=== PATIENT | female | born 1945 | race Caucasian/White ===

== ENCOUNTER 2018-01-25 01:02 | Observation (INO) ==
[2018-01-25] MEDS ORDERED: Ondansetron ODT 4 MG TAB.RAPDIS SL PRN (05:08)
[2018-01-25] MEDS ORDERED: Naloxone 0.4 MG/ML INJ IVP PRN (05:08)
[2018-01-25] MEDS ORDERED: OXYCODONE Oral CONC 10 MG/0.5 ML ORAL.SYG SL PRN (05:08)
[2018-01-25] MEDS ORDERED: 0.9 % Sodium Chloride 1,000 ML IVC SCH (05:15)
--- NOTE | 2018-01-25 05:33 | Internal Med History&Physical ---
Date of Encounter: 01/25/18 Time of Encounter: 05:18 Internal Medicine - H&P: HPI Chief complaint: Abdominal Pain Admitted From: Hospital to Hospital Transfer Plans for Post Hospital Care: Home History of present illness: Ms. Abdul is a 72 year old female with a past medical history of hypertension. She presented to the [place] ED after several episodes over 2 days of severe right upper quadrant pain with associated nausea and vomiting and radiation to the right shoulder. One of the episodes was postprandial and the others did not seem to be. She has never had symptoms like this before and does not have a significant history of gastrointestinal illness. She also denies any abdominal surgical history. Her social history consists of approximately 30 years of tobacco use, quit 20 years ago, no alcohol or drug use. Labs and imaging at [facility] revealed white blood cell count 12.5, amylase 628 , lipase greater than 1800, CT abdomen findings of gallbladder wall thickening. During her stay at [facility] she was actually completely asymptomatic. However she was transferred to the [facility] in case surgical intervention was warranted for possible cholecystitis and pancreatitis. Past Med Surg Social Fam HX - Past Medical History Medical history: hypertension Psychiatric history: no psych history - Social History Smoking Status: Never smoker Smokeless Tobacco Status: No Alcohol use: none Drug use: none - Family History Father Adopted: [place]: SOPHY Family Member Ethnicity: Non- Living Status: Age at : 69 Cause of : LUNG CANCER Hx Family Respiratory Disorders: Yes (ASHTHMA, COPD) Hx Family Cancer: Yes (LUNG) Hx Family GI Disorders: No Hx Family Genitourinary Disorders: No Hx Family Endocrine Disorder: No Hx Family Musculoskeletal Disorders: No Hx Family Neuromuscular Disorders: No Hx Family Neurologic Disorders: No Hx Family HEENT Disorders: No Hx Family Autoimmune Disorders: No Hx Family Reproductive Disorders: No Hx Family Psychosocial Disorders: No Hx Family Medical Disorders: No Mother Cause of : esophageal cancer Internal Medicine - H&P: Meds Losartan [Cozaar] 25 mg PO DAILY 01/25/18 [History] 3 Allergy/AdvReac Type Severity Reaction Status Date / Time No Known Allergies Allergy Verified 01/25/18 00:53 All Systems PM: A 10-system review of systems was performed and is negative for pertinent findings except as documented above in the HPI. - Constitutional Constitutional: no chills, no fever(s), no malaise - Cardiovascular Cardiovascular ROS IM: no chest pain, no diaphoresis, no dyspnea, no dyspnea on exertion, no lightheadedness, no syncope - Respiratory Respiratory: no cough - Gastrointestinal Gastrointestinal: abdominal pain, vomiting, no change in bowel habits, no change in stool character, no coffee ground emesis, no diarrhea - Genitourinary Genitourinary: no urinary frequency, no urinary hesitancy, no urinary incontinence, no urinary urgency - Musculoskeletal Musculoskeletal ROS IM: no arthralgias - Integumentary Integumentary IM: no erythema - Neurological Neurological ROS: no abnormal speech, no focal weakness - Psychiatric Psychiatric: no confusion - Endocrine Endocrine IM: no flushing - Constitutional Vitals: Temp Pulse Resp BP Pulse Ox 97.6 F 62 14 172/81 98 01/25/18 03:39 01/25/18 03:39 01/25/18 03:39 01/25/18 03:39 01/25/18 03:39 Exam: Patient in no acute distress, alert and oriented 3 Cranial nerves II through XII intact Heart in regular rate and irregularly irregular rhythm, no murmur or gallop Lungs clear to auscultation bilaterally without wheeze or rales or rhonchi Abdomen soft and mostly nontender with normal bowel sounds present, tender to deep palpation in the right upper quadrant, no distention or guarding Bilateral lower extremities nonedematous Skin warm and dry - Assessment and plan (1) Pancreatitis Current Visit: Yes Status: Acute Assessment and plan: Patient presented with right upper quadrant pain CMP revealed amylase 628 and lipase greater than 1800 Patient is asymptomatic and hemodynamically stable No history of previous occurrences Plan NPO diet 2L normal saline bolus, 2L normal saline MIVF 100mls/hr 5mg SL Oxycodone q4hr PRN pain control 4mg SL Ondansetron q8hr PRN nausea Consider GI or Surgery consult Qualifiers: Chronicity: acute Pancreatitis type: unspecified pancreatitis type Acute pancreatitis complication: unspecified Qualified Code(s): K85.90 - Acute pancreatitis without necrosis or infection, unspecified (2) Cholecystitis Current Visit: Yes Status: Acute Assessment and plan: Patient presented with right upper quadrant pain White blood cell count 12.5, afebrile Other vital signs within normal limits, negative SIRS criteria CT abdomen revealed gallbladder wall thickening Plan Ceftriaxone 2g daily NPO diet MIVF, pain and nausea control Gallbladder US Surgery consult based on imaging (3) Hypertension Current Visit: No Status: Chronic Assessment and plan: Patient with chronic hypertension managed with home medications We will hold home Losartan and monitor Qualifiers: Hypertension type: essential hypertension Qualified Code(s): I10 - Essential (primary) hypertension (4) DVT prophylaxis Current Visit: Yes Status: Acute Assessment and plan: 5000 units subcutaneous heparin every 8 hours - Time Spent With Patient Total time spent is greater than 50% in coordination of care (as documented) at patient's floor/unit and/or counseling patient:
[2018-01-25] MEDS: *HR* Heparin 5,000 UNIT/ML VIAL SQ SCH ×3 (05:51→21:09)
[2018-01-25 05:52] LABS: Basophils % 0.6 %; Eosinophils # 0.1 K/mcL (0.0-0.6); Eosinophils % 1.1 %; Hematocrit 39.5 % (35.3-44.9); Hemoglobin 13.3 g/dL (11.5-15.4); Immature Granulocytes % 0.2 % (0-4); Lymphocytes # 1.6 K/mcL (0.6-4.6); Lymphocytes % 25.6 %; Mean Corpuscular HGB Conc 33.7 g/dL (31.6-35.5); Mean Corpuscular Hemoglobin 28.7 pg (28.0-33.3); Mean Corpuscular Volume 85.1 fL (83.0-100.0); Mean Platelet Volume 10.8 fL (9.4-12.4); Monocytes # 0.4 K/mcL (0.0-1.3); Neutrophils # 4.2 K/mcL (1.6-8.9); Platelet Count 226 K/mcL (140-400); Red Blood Count 4.64 M/mcL (3.82-4.97); Red Cell Distribution Width 12.9 % (11.5-14.5); Segmented Neutrophils % 66.5 %
[2018-01-25 07:06] LABS: BUN/Creatinine Ratio 24 (6-26); Blood Urea Nitrogen 13 mg/dL (8-23); Carbon Dioxide 24 mEq/L (23-29); Chloride 110 mEq/L (98-107); Glucose 107 mg/dL (70-105); Potassium 3.6 mEq/L (3.5-5.1); Sodium 141 mEq/L (136-145); eGFR For Non-African Americans > 60 (> 60)
[2018-01-25 07:07] LABS: Alanine Aminotransferase 41 Units/L (7-52); Albumin 4.2 g/dL (3.5-5.7); Albumin/Globulin Ratio 1.6 (1.1-2.2); Alkaline Phosphatase 72 Units/L (34-104); Aspartate Amino Transferase 49 Units/L (13-39); Bilirubin,Total 0.6 mg/dL (0.3-1.0); Chol/HDL Ratio 3.7 (0-4.9); Cholesterol 226 mg/dL (< 200); Globulin 2.6 g/dL (2.4-3.5); HDL Cholesterol 61 mg/dL (40-59); LDL Cholesterol,Calculated 140 mg/dL (0-99); Osmolality,Calculated 293 (280-300); Total Protein 6.8 g/dL (6.4-8.9); Triglycerides 123 mg/dL (< 150)
[2018-01-25 07:23] LABS: Amylase 229 Units/L (29-103); Lipase 619 Units/L (11-82)
--- NOTE | 2018-01-25 10:42 | Event Note ---
Date of Encounter: 01/25/18 Time of Encounter: 10:39 Patient seen and examined at bedside. Patient no acute overnight events since admission. History and physical assessment and plan reviewed and agreed. Patient presented with three-day history of epigastric and right upper quadrant pain associated with nausea and vomiting; found to have elevated lipase and imaging findings consistent with early cholecystitis with no cholelithiasis. The patient was started on IV fluids and made nothing by mouth and has improvement of her symptoms and laboratory studies. Currently the patient is resting comfortably in no distress and is only complaining of mild right upper quadrant pain We will consult GI for evaluation in light of pancreatitis and cholecystitis to determine if MRCP would be of any benefit since there was no cholelithiasis seen on imaging Will obtain HIDA scan for now and keep input patient nothing by mouth with IV fluids
--- NOTE | 2018-01-25 11:41 | Gastroenterology Consult Note ---
<Diamond Barajas - Last Filed: 01/25/18 13:00> Date of Encounter: 01/25/18 Time of Encounter: 11:36 - Assessment and plan (1) Pancreatitis Current Visit: Yes Status: Acute Assessment and plan: 72yr old female with acute pancreatitis likely secondary to gallstones as her lipase was very elevated at >1800 and has now decreased significantly. Per history there is likely no other cause of acute pancreatitis besides gallstones. Abdominal pain has completely resolved. -Gallbladder ultrasound demonstrated wall thickening 8mm. No biliary dilation or stones. Negative Ambriz. -Lipase 619 (>1800 at [place]) -amylase to 29 -calcium and triglycerides unremarkable. No alcohol use. Only medication is losartan. -abdominal exam was soft, nontender, no guarding Plan: -HIDA scan is ordered -patient may have a clear liquid diet after HIDA scan -recommend general surgery consultation for possible cholecystectomy -antibiotics are not indicated at this time Qualifiers: Chronicity: acute Pancreatitis type: unspecified pancreatitis type Acute pancreatitis complication: unspecified Qualified Code(s): K85.90 - Acute pancreatitis without necrosis or infection, unspecified (2) Thickening of wall of gallbladder with pericholecystic fluid Current Visit: No Status: Acute Assessment and plan: Gallbladder ultrasound demonstrated wall thickening 8mm. No biliary dilation or stones. Negative Ambriz. -Plan as above - Time Spent With Patient Total time spent is greater than 50% in coordination of care (as documented) at patient's floor/unit and/or counseling patient: GI History of Present Illness - Data of Consult Patient: new to practice Consult date: 01/25/18 Requesting Physician: Patrice Mccauley MD - Consult Narrative Reason for consult: Pancreatitis/gallbladder inflammation History of present illness: Ms. Abdul is a 72 year old female with past medical history of hypertension who presented as a transfer from [place] ED and gastroenterology was consulted due to due to acute pancreatitis and gallbladder wall inflammation. Labs at [place]: WBC 12.5, amylase 628, lipase greater than 1800, CT abdomen findings of gallbladder wall thickening. The patient reported that 4 days ago she had an episode of sharp and severe right upper quadrant pain that lasted an hour and a half. It was a sudden onset and then resolved quickly. She had nausea and vomiting. She did not go to the ED at that time. Yesterday she noted that the pain started suddenly again the right upper quadrant sharp. She had nausea and reflux. She has never had anything like this before and does not have biliary colic or right upper quadrant pain after eating meals. She then went to the ED. She denied melena, hematachezia, fever, chills, hematemesis. She still has her gallbladder. She is a former smoker. Denied alcohol or drug use. Past Med Surg Social Fam HX - Past Medical History Attestation: Yes The following information was validated with the patient. Source: patient Medical history: hypertension Psychiatric history: no psych history - Past Surgical History Surgical History: no surgical history - Social History Smoking Status: Former smoker Smokeless Tobacco Status: No Alcohol use: none Drug use: none - Family History Father Adopted: [place]: SOPHY Family Member Ethnicity: Non- Living Status: Age at : 69 Cause of : LUNG CANCER Hx Family Respiratory Disorders: Yes (ASHTHMA, COPD) Hx Family Cancer: Yes (LUNG) Hx Family GI Disorders: No Hx Family Genitourinary Disorders: No Hx Family Endocrine Disorder: No Hx Family Musculoskeletal Disorders: No Hx Family Neuromuscular Disorders: No Hx Family Neurologic Disorders: No Hx Family HEENT Disorders: No Hx Family Autoimmune Disorders: No Hx Family Reproductive Disorders: No Hx Family Psychosocial Disorders: No Hx Family Medical Disorders: No Mother Cause of : esophageal cancer - Gastrointestinal Gastrointestinal: Present: abdominal pain, heartburn, nausea, vomiting. Absent : constipation, diarrhea, hematemesis, hematochezia, melena - Constitutional Constitutional: no fatigue, no weight loss - EENT Nose, mouth and throat: Absent: dysphagia, sore throat - Cardiovascular Cardiovascular ROS: Absent: chest pain, palpitations - Respiratory Respiratory IM: Absent: cough, dyspnea - Genitourinary Genitourinary: Absent: change in color - Neurological ROS Neurological GI: Absent: confusion, dizziness - Hematologic/Lymphatic Hematologic/Lymphatic pediatric: Absent: easy bleeding - Musculoskeletal Musculoskeletal ROS GI: Absent: back pain, joint swelling - Integumentary Integumentary GI: Absent: jaundice, pruritis, rash - Psychiatric ROS Psychiatric GI: Absent: depression - Endocrine Endocrine IM: Absent: fatigue - Constitutional Vitals: Temp Pulse Resp BP Pulse Ox 97.9 F 60 16 178/79 98 01/25/18 06:56 01/25/18 06:56 01/25/18 06:56 01/25/18 06:56 01/25/18 06:56 Exam: Gen.: Vitals noted. No acute distress. AAOx3 HEENT: oropharynx clear, Normocephalic, atraumatic Cardiac: RRR, no murmur, +S1/S2 Pulmonary: CTA bilaterally, no wheezes, rales or rhonchi, equal chest expansion Abdomen: soft, nontender, Bowel sounds noted, no guarding MSK: ROM intact, no joint swelling noted Extremities: no BLE edema, nontender calf, no cyanosis or clubbing Neuro: A&Ox3, moves all extremities, no focal deficits Psych: Appropriate mood and behavior Results - Labs CBC & Chem 7: 01/25/18 05:37 01/25/18 05:37 Labs: Last Result Calcium 9.0 mg/dL (8.6-10.3) 01/25/18 05:37 Triglycerides 123 mg/dL (< 150) 01/25/18 05:37 Entire Visit Hgb 13.3 g/dL (11.5-15.4) 01/25/18 05:37 Hct 39.5 % (35.3-44.9) 01/25/18 05:37 Total Bilirubin 0.6 mg/dL (0.3-1.0) 01/25/18 05:37 AST 49 Units/L (13-39) H 01/25/18 05:37 ALT 41 Units/L (7-52) 01/25/18 05:37 Amylase 229 Units/L (29-103) H 01/25/18 05:37 Lipase 619 Units/L (11-82) H 01/25/18 05:37 - Impressions Impressions Gallbladder Ultrasound 01/25/18 05:13 IMPRESSION: 1. Circumferential gallbladder wall thickening with negative sonographic Ambriz sign and no evidence of biliary dilation or gallstones. If clinically concerned about chronic cholecystitis, nuclear medicine hepatobiliary scintigraphy with gallbladder ejection fraction could be performed. 2. Mild fatty infiltration of the liver. Otherwise unremarkable right upper quadrant ultrasound. D/ / Camilo Olson MD / Camilo Olson MD Interpreting Provider: Camilo Olson MD Consult Discharge Plan - Plan Referrals: Christie Farias, [employer] [Primary Care Provider] - 01/31/18 12:30 pm <Luca Meyers - Last Filed: 01/25/18 15:40> Date of Encounter: 01/25/18 - Time Spent With Patient Total time spent is greater than 50% in coordination of care (as documented) at patient's floor/unit and/or counseling patient: GI History of Present Illness - Data of Consult Requesting Physician: Patrice Mccauley MD - Consult Narrative History of present illness: Ms. Abdul is a 72 year old female - Constitutional Vitals: Temp Pulse Resp BP Pulse Ox 97.9 F 60 16 178/79 98 01/25/18 06:56 01/25/18 06:56 01/25/18 06:56 01/25/18 06:56 01/25/18 06:56 Results - Labs CBC & Chem 7: 01/25/18 05:37 01/25/18 05:37 Labs: Last Result Calcium 9.0 mg/dL (8.6-10.3) 01/25/18 05:37 Triglycerides 123 mg/dL (< 150) 01/25/18 05:37 Entire Visit Hgb 13.3 g/dL (11.5-15.4) 01/25/18 05:37 Hct 39.5 % (35.3-44.9) 01/25/18 05:37 Total Bilirubin 0.6 mg/dL (0.3-1.0) 01/25/18 05:37 AST 49 Units/L (13-39) H 01/25/18 05:37 ALT 41 Units/L (7-52) 01/25/18 05:37 Amylase 229 Units/L (29-103) H 01/25/18 05:37 Lipase 619 Units/L (11-82) H 01/25/18 05:37 - Impressions Impressions Gallbladder Ultrasound 01/25/18 05:13 IMPRESSION: 1. Circumferential gallbladder wall thickening with negative sonographic Ambriz sign and no evidence of biliary dilation or gallstones. If clinically concerned about chronic cholecystitis, nuclear medicine hepatobiliary scintigraphy with gallbladder ejection fraction could be performed. 2. Mild fatty infiltration of the liver. Otherwise unremarkable right upper quadrant ultrasound. D/ / Camilo Olson MD / Camilo Olson MD Interpreting Provider: Camilo Olson MD - Attending Attestation I have personally performed a face to face evaluation on this patient. I have reviewed and agree with the care plan. History and Exam by me shows: Pt seen. Agree with Dr Downey assessment/plan. O/E Abd soft. A: Pt with poss GS pancreatitis Rec: Clear liquid, HIDA , surgical evaluation for poss GB surgery
[2018-01-25] MEDS: Ringers Solution, Lactated 1,000 ML IVC SCH (16:49)
--- NOTE | 2018-01-25 18:01 | General Surgery Consult Note ---
<Venita Mckeon - Last Filed: 01/25/18 17:49> Date of Encounter: 01/25/18 Time of Encounter: 17:49 Assessment and Plan (1) Pancreatitis Status: Acute Likely idiopathic pancreatitis with clinical picture to correlate to lipase 618 from over 1800 and Amylase 229 - but no imaging confirming gallstone. Both CT and US showed thickening of 8 mm with no evidence of cholelithasis. HIDA scan shows no cholecystitis with normal gastric emptying. - monitor lipase level - continue clears - agree with IVF as needed - no surgical intervention planned at this time Surgery will continue to follow Qualifiers: Chronicity: acute Pancreatitis type: unspecified pancreatitis type Acute pancreatitis complication: unspecified Qualified Code(s): K85.90 - Acute pancreatitis without necrosis or infection, unspecified (2) Thickening of wall of gallbladder with pericholecystic fluid Status: Acute see above History of Present Illness Consult date: 01/25/18 Reason for consult: abdominal pain Requesting physician: Gerald Del Castillo History of present illness: 72 y/o f hx HTN presented to [place] ED for two episodes of abdominal pain. She describes severe cramping epigastric pain that awoke her from sleep and caused her to vomit once; it last 1-2 hours and resolved on its own Second occurrence was after eating a taco and she felt nauseous but did not vomit. These symptoms resolved once she presented to ED and has not reoccurred. At [place] ED her lipase was over [address] finds of galbladder thickening. She was transferred to [place] for concern for pancreatitis and cholecyctisis. She has remained afebrile and is tolerating clears well - denies diarrhea, confusion, feverish or chills. She has occasional leg cramps at night that she says feel similar to this abdominal pain. Her only medical diagnosis is HTN and her only medications are losartan and vitamin D. She has no history of EtOH use. She is former smoker who quit decades ago. She denies illicit substances. Surgical history included removal of benign throat tumor - no adverse reaction to anesthesia. FMHx of mother with cholelithasis. She was evaluated by GI who could not find inciting etiology for pancreatisis with normal calcium and triglycerides- thus suspected cholelithasis. Past Med Surg Social Fam HX - Past Medical History Medical history: hypertension Psychiatric history: no psych history - Past Surgical History Surgical History: no surgical history - Social History Smoking Status: Former smoker Smokeless Tobacco Status: No Alcohol use: none Drug use: none - Family History Father Adopted: [place]: SOPHY Family Member Ethnicity: Non- Living Status: Age at : 69 Cause of : LUNG CANCER Hx Family Respiratory Disorders: Yes (ASHTHMA, COPD) Hx Family Cancer: Yes (LUNG) Hx Family GI Disorders: No Hx Family Genitourinary Disorders: No Hx Family Endocrine Disorder: No Hx Family Musculoskeletal Disorders: No Hx Family Neuromuscular Disorders: No Hx Family Neurologic Disorders: No Hx Family HEENT Disorders: No Hx Family Autoimmune Disorders: No Hx Family Reproductive Disorders: No Hx Family Psychosocial Disorders: No Hx Family Medical Disorders: No Mother Cause of : esophageal cancer Medications and Allergies Losartan [Cozaar] 25 mg PO DAILY 01/25/18 [History] 3 Allergy/AdvReac Type Severity Reaction Status Date / Time No Known Allergies Allergy Verified 01/25/18 00:53 Review of Systems All systems PM: The remainder of the systems were reviewed and are negative - Constitutional no fever(s), no frequent falls, no headache(s), no malaise - Cardiovascular no chest pain, no irregular heart rhythm, no palpitations - Respiratory no cough, no wheezing, no chest congestion - Gastrointestinal abdominal pain, cramping, nausea, vomiting, no constipation, no diarrhea - Genitourinary Genitourinary: no dysuria, no hematuria, no urinary frequency - Musculoskeletal muscle cramps, no muscle weakness - Neurological no confusion, no headache(s), no syncope General Surgery Exam Initial Vital Signs Temp Pulse Resp BP Pulse Ox 97.6 F 62 14 172/81 98 01/25/18 03:39 01/25/18 03:39 01/25/18 03:39 01/25/18 03:39 01/25/18 03:39 - General physical appearance well developed, well nourished, no distress - Eyes normal ocular movement - ENT normal pinna, normal nares, no hearing loss, no congestion, dry mucosa - Respiratory normal expansion, normal respiratory effort, clear to auscultation - Cardiovascular Cardiovascular exam: Present: RRR, no murmurs/rubs/gallops - Abdomen Abdomen general surgery: Present: bowel sounds present (decreased), soft. Absent: distended, guarding Abdominal Tenderness: Present: RUQ (very mild, no Ambriz's sign) Hernia: Present: none - Integumentary Integumentary general surgery: Present: warm and dry, no abnormal pigmentation. Absent: diaphoresis - Neurologic Present: CN 2-12 grossly intact, normal coordination, normal sensation - Musculoskeletal Present: normal gait, normal posture - Psychiatric Psychiatric general surgery: Present: A&Ox3, speech is normal, memory intact Exam Initial Vital Signs Temp Pulse Resp BP Pulse Ox 97.6 F 62 14 172/81 98 01/25/18 03:39 01/25/18 03:39 01/25/18 03:39 01/25/18 03:39 01/25/18 03:39 Results - Labs 01/25/18 05:37 01/25/18 05:37 Abnormal lab results Chloride 110 mEq/L (98-107) H 01/25/18 05:37 Creatinine 0.54 mg/dL (0.60-1.20) L 01/25/18 05:37 Glucose 107 mg/dL (70-105) H 01/25/18 05:37 AST 49 Units/L (13-39) H 01/25/18 05:37 Cholesterol 226 mg/dL (< 200) H 01/25/18 05:37 LDL Cholesterol, Calc 140 mg/dL (0-99) H 01/25/18 05:37 HDL Cholesterol 61 mg/dL (40-59) H 01/25/18 05:37 Amylase 229 Units/L (29-103) H 01/25/18 05:37 Lipase 619 Units/L (11-82) H 01/25/18 05:37 Diabetes panel 01/25/18 Range/Units 05:37 Sodium 141 (136-145) mEq/L Potassium 3.6 (3.5-5.1) mEq/L Chloride 110 H (98-107) mEq/L Carbon Dioxide 24 (23-29) mEq/L BUN 13 (8-23) mg/dL Creatinine 0.54 L (0.60-1.20) mg/dL Glucose 107 H (70-105) mg/dL Calcium 9.0 (8.6-10.3) mg/dL AST 49 H (13-39) Units/L ALT 41 (7-52) Units/L Alkaline Phosphatase 72 (34-104) Units/L Albumin 4.2 (3.5-5.7) g/dL Triglycerides 123 (< 150) mg/dL HDL Cholesterol 61 H (40-59) mg/dL Calcium panel 01/25/18 Range/Units 05:37 Calcium 9.0 (8.6-10.3) mg/dL Albumin 4.2 (3.5-5.7) g/dL Pituitary panel 01/25/18 Range/Units 05:37 Sodium 141 (136-145) mEq/L Potassium 3.6 (3.5-5.1) mEq/L Chloride 110 H (98-107) mEq/L Carbon Dioxide 24 (23-29) mEq/L BUN 13 (8-23) mg/dL Creatinine 0.54 L (0.60-1.20) mg/dL Glucose 107 H (70-105) mg/dL Calcium 9.0 (8.6-10.3) mg/dL Adrenal panel 01/25/18 Range/Units 05:37 Sodium 141 (136-145) mEq/L Potassium 3.6 (3.5-5.1) mEq/L Chloride 110 H (98-107) mEq/L Carbon Dioxide 24 (23-29) mEq/L BUN 13 (8-23) mg/dL Creatinine 0.54 L (0.60-1.20) mg/dL Glucose 107 H (70-105) mg/dL Calcium 9.0 (8.6-10.3) mg/dL Total Bilirubin 0.6 (0.3-1.0) mg/dL AST 49 H (13-39) Units/L ALT 41 (7-52) Units/L Alkaline Phosphatase 72 (34-104) Units/L Albumin 4.2 (3.5-5.7) g/dL All other labs normal. Consult Discharge Plan - Plan Instructions: Pancreatitis (DC), Pancreatitis (GEN) Referrals: Christie Farias, KIRSTEN [Primary Care Provider] - 01/31/18 12:30 pm <Ryan Salter - Last Filed: 01/27/18 14:55> Date of Encounter: 01/25/18 Review of Systems All systems PM: The remainder of the systems were reviewed and are negative General Surgery Exam Initial Vital Signs Temp Pulse Resp BP Pulse Ox 97.6 F 62 14 172/81 98 01/25/18 03:39 01/25/18 03:39 01/25/18 03:39 01/25/18 03:39 01/25/18 03:39 Exam Initial Vital Signs Temp Pulse Resp BP Pulse Ox 97.6 F 62 14 172/81 98 01/25/18 03:39 01/25/18 03:39 01/25/18 03:39 01/25/18 03:39 01/25/18 03:39 Results - Labs 01/26/18 03:36 01/26/18 03:36 Abnormal lab results Chloride 111 mEq/L (98-107) H 01/26/18 03:36 Creatinine 0.54 mg/dL (0.60-1.20) L 01/26/18 03:36 Serum Total Protein 5.9 g/dL (6.4-8.9) L 01/26/18 03:36 Globulin 2.2 g/dL (2.4-3.5) L 01/26/18 03:36 Cholesterol 226 mg/dL (< 200) H 01/25/18 05:37 LDL Cholesterol, Calc 140 mg/dL (0-99) H 01/25/18 05:37 HDL Cholesterol 61 mg/dL (40-59) H 01/25/18 05:37 Amylase 229 Units/L (29-103) H 01/25/18 05:37 All other labs normal. - Attending Attestation I examined this patient and my medical decision-making was reviewed with the Resident Physician. I agree with the documented findings, disposition and treatment plan as described except to the extent set forth below. Review the above assessment and evaluation. Patient had right upper quadrant abdominal pain but denies any nausea or vomiting. I examination tenderness is minimal. Lipase value was greater than 1800 on presentation but down to approximately 600. Ultrasound and CT scan shows no evidence of gallstones. HIDA scan shows flow into the small bowel. There is no evidence of gallstones present therefore it appears that she has idiopathic pancreatitis. She may benefit from further evaluation by GI to determine whether or not she has miniature crystal formation within the bile which would be reason for laparoscopic cholecystectomy. At this time I do not think she requires any type of surgical intervention. Await recovery from her pancreatic tenderness. Thank you very much.
[2018-01-26] MEDS ORDERED: cefTRIAXone 2,000 MG in Water for inj. (sterile) 20 ML 20 ML IVPB SCH (01:00)
[2018-01-26] MEDS: Ringers Solution, Lactated 1,000 ML IVC SCH (04:03)
[2018-01-26 05:20] LABS: Basophils # 0.1 K/mcL (0.0-0.2); Basophils % 0.8 %; Eosinophils # 0.1 K/mcL (0.0-0.6); Eosinophils % 1.8 %; Hematocrit 36.8 % (35.3-44.9); Hemoglobin 12.5 g/dL (11.5-15.4); Immature Granulocytes % 0.3 % (0-4); Lymphocytes # 1.5 K/mcL (0.6-4.6); Lymphocytes % 24.1 %; Mean Corpuscular Hemoglobin 28.7 pg (28.0-33.3); Mean Corpuscular Volume 84.4 fL (83.0-100.0); Mean Platelet Volume 11.6 fL (9.4-12.4); Monocytes # 0.3 K/mcL (0.0-1.3); Monocytes % 5.1 %; Neutrophils # 4.1 K/mcL (1.6-8.9); Platelet Count 226 K/mcL (140-400); Red Blood Count 4.36 M/mcL (3.82-4.97); Segmented Neutrophils % 67.9 %
[2018-01-26 05:33] LABS: Alanine Aminotransferase 26 Units/L (7-52); Albumin 3.7 g/dL (3.5-5.7); Albumin/Globulin Ratio 1.7 (1.1-2.2); Alkaline Phosphatase 59 Units/L (34-104); Aspartate Amino Transferase 22 Units/L (13-39); BUN/Creatinine Ratio 19 (6-26); Bilirubin,Direct 0.1 mg/dL (0.0-0.2); Bilirubin,Indirect 0.9 mg/dL (0.0-1.2); Blood Urea Nitrogen 10 mg/dL (8-23); Carbon Dioxide 24 mEq/L (23-29); Chloride 111 mEq/L (98-107); Globulin 2.2 g/dL (2.4-3.5); Glucose 102 mg/dL (70-105); Lipase 78 Units/L (11-82); Magnesium 2.2 mg/dL (1.6-2.6); Osmolality,Calculated 295 (280-300); Phosphorous 3.3 mg/dL (2.7-4.5); Potassium 3.5 mEq/L (3.5-5.1); Sodium 143 mEq/L (136-145); Total Protein 5.9 g/dL (6.4-8.9); eGFR For Non-African Americans > 60 (> 60)
[2018-01-26] MEDS: *HR* Heparin 5,000 UNIT/ML VIAL SQ SCH (05:46)
[2018-01-26 08:25] VITALS: BP 168/76
--- NOTE | 2018-01-26 09:34 | Discharge Summary ---
- NOTES TO OUTPATIENT PROVIDER Notes to Outpatient Provider: Ms. Abdul is a pleasant 72-year-old female presented with chief complaint of abdominal pain with right upper quadrant pain. The patient had initial imaging consistent with gallbladder wall thickening concerning for cholecystitis and elevated lipase. The patient was started on IV fluids and had subsequent HIDA scan which did not reveal cholecystitis. The patient's elevated liver enzymes and lipase improved dramatically and were normal prior to discharge. The patient likely had a gallstone that passed causing her symptoms. Imaging did not reveal any evidence of any subsequent stones. Patient was started on a diet and tolerated it well and had absolutely no symptoms prior to discharge. Disposition admission she developed these symptoms again she should return to the emergency department for further evaluation. She will follow-up with her primary care physician within one week. Patient stable condition and agreeable to discharge on 01/26/2018. All questions answered. Date of Encounter: 01/26/18 Time of Encounter: 09:31 - Discharge Diagnosis (1) Pancreatitis Priority: Primary Status: Inactive Assessment and Plan: -presumed gallstone pancreatitis -resolved Qualifiers: Chronicity: acute Pancreatitis type: unspecified pancreatitis type Acute pancreatitis complication: unspecified Qualified Code(s): K85.90 - Acute pancreatitis without necrosis or infection, unspecified (2) Hypertension Priority: Secondary Status: Chronic Qualifiers: Hypertension type: essential hypertension Qualified Code(s): I10 - Essential (primary) hypertension (3) Cholecystitis Priority: Secondary Status: Acute Assessment and Plan: Ruled out via HIDA scan (4) DVT prophylaxis Priority: Secondary Status: Acute Hospital course: Ms. Abdul is a pleasant 72-year-old female presented with chief complaint of abdominal pain with right upper quadrant pain. The patient had initial imaging consistent with gallbladder wall thickening concerning for cholecystitis and elevated lipase. The patient was started on IV fluids and had subsequent HIDA scan which did not reveal cholecystitis. The patient's elevated liver enzymes and lipase improved dramatically and were normal prior to discharge. The patient likely had a gallstone that passed causing her symptoms. Imaging did not reveal any evidence of any subsequent stones. Patient was started on a diet and tolerated it well and had absolutely no symptoms prior to discharge. Disposition admission she developed these symptoms again she should return to the emergency department for further evaluation. She will follow-up with her primary care physician within one week. Patient stable condition and agreeable to discharge on 01/26/2018. All questions answered. Discharge discussed with: patient, family, nurse - Time Spent with Patient Total time spent providing and/or coordinating discharge services: Less than 30 minutes - Discharge Medications Home Medications: Losartan [Cozaar] 25 mg PO DAILY 01/25/18 [History] Allergies/Adverse Reactions: 3 Allergy/AdvReac Type Severity Reaction Status Date / Time No Known Allergies Allergy Verified 01/25/18 00:53 Date of admission: 01/25/18 02:43 Primary care physician: Christie Farias CNP Consults: 01/25/18 10:35 Consult to Gastroenterology [CONS] Routine Consulting Provider: Gastroenterology Yessica Reason for Consult: pancreatitis/gallbladder inflamation Call Completed: Yes 01/25/18 13:38 Consult to Surgery [CONS] Routine Consulting Provider: Ryan Salter Reason for Consult: eval for cholecystectomy Call Completed: Yes - Constitutional Vitals: Temp Pulse Resp BP Pulse Ox 97.5 F L 79 16 168/76 96 01/26/18 08:25 01/26/18 08:25 01/26/18 08:25 01/26/18 08:25 01/26/18 08:25 Exam: Constitutional: No acute distress, Alert Psych: AAO x 3 HEENT: NCAT Neck: supple Cardio: regular rate and rhythm, +s1s2, no murmurs/rubs/gallops, no JVD Resp: clear to ascultation bilaterally Abd: soft, non tender/non distended, positive bowel sounds, no gaurding/reboud/ ridgitity Extremities: no clubbing/cyanosis/edema appreciated Neuro: no focal deficits appreciated - Patient Status Disposition: Home, Self-Care Condition: Good Functional capacity at discharge: independent ambulation Overall status at discharge: patient is back to baseline - Discharge Instructions Follow Up With: Christie Farias CNP [Primary Care Provider] - 01/31/18 12:30 pm - Diet and Activity Activity: as per physical therapy Diet: low fat, low cholesterol
== END 2018-01-26 12:30 | disposition home or self-care (01) ==
LOC: 3BNU
PROVIDERS: ADMIT Family Medicine; ATTEND Family Medicine

== ENCOUNTER 2018-04-20 17:37 | Observation (INO) ==
--- NOTE | 2018-04-20 18:13 | Emergency Department Note ---
Disposition General Adult HPI - General Chief complaint: ED Abdominal Pain Stated complaint: abd pain Time Seen by Provider: 04/20/18 18:13 Source: patient Limitations: no limitations - History of Present Illness Pain Scale: 0 - Related Data Home Medications Medication Instructions Recorded Confirmed Losartan [Cozaar] 25 mg PO DAILY 01/25/18 01/25/18 Allergies Allergy/AdvReac Type Severity Reaction Status Date / Time No Known Allergies Allergy Verified 01/25/18 00:53 Past Medical History - Past Medical History Medical history: Reports: hypertension Surgical history: Reports: no surgical history Psychiatric history: Reports: no psych history - Social History Smoking Status: Former smoker Smokeless Tobacco Status: No Alcohol use: Reports: none Drug use: Reports: none Physical Exam - General Limitations: no limitations General appearance: alert, in no apparent distress Course Vital Signs Temperature 97.6 F 04/20/18 17:40 Pulse Rate 79 04/20/18 17:40 Respiratory Rate 18 04/20/18 17:40 Blood Pressure 214/127 04/20/18 17:40 O2 Sat by Pulse Oximetry 98 04/20/18 17:40 Temperature 97.6 F 04/20/18 17:57 Pulse Rate 78 04/20/18 17:57 Respiratory Rate 18 04/20/18 17:57 Blood Pressure 161/102 04/20/18 17:57 O2 Sat by Pulse Oximetry 99 04/20/18 17:57 Oxygen Delivery Oxygen Delivery Room Air
--- NOTE | 2018-04-20 18:37 | Emergency Department Note ---
START Narrative - START START: Pt is a 73yo female here for increasing abdominal pain since this morning at 0830. She was recently here for "gallbladder issues" and pancreatitis. No gallstone was found on US likely secondary to already being passed. She had gen surg workup and was told to return if symptoms returned. She now has increasing symptoms. Epigastric, RUQ and back pain. It is burning/sharp. SHe has nausea, no vomiting. CBC, CMP, lipase, EKG ordered. Last admission she had negative HIDA, CT and ultrasound. <Rob Rogers - Last Filed: 04/20/18 18:32> - START START: I examined this patient and my medical decision-making was reviewed with the Resident Physician. I agree with the documented findings, disposition and treatment plan as described except to the extent set forth below. Patient seen today by Dr. Rogers and myself, agree with her evaluation management plan, supervised the care of the patient's stay, patient comes in today complaining that she is having some burning in her epigastric region. She says she is a gallbladder and pancreatitis. Issues in the past but they do not know the cause. We will start labs on her EKG and then sign her out to the evening ER physician Dr. Red for further management disposition. Patient's agreement this plan. <Trevon Gramajo - Last Filed: 04/20/18 19:05>
[2018-04-20 18:52] LABS: Basophils # 0.1 K/mcL (0.0-0.2); Basophils % 0.7 %; Eosinophils # 0.2 K/mcL (0.0-0.6); Eosinophils % 2.1 %; Hematocrit 40.9 % (35.3-44.9); Hemoglobin 13.9 g/dL (11.5-15.4); Immature Granulocytes % 0.4 % (0-4); Lymphocytes # 1.7 K/mcL (0.6-4.6); Mean Corpuscular Volume 85.4 fL (83.0-100.0); Mean Platelet Volume 10.8 fL (9.4-12.4); Monocytes # 0.4 K/mcL (0.0-1.3); Platelet Count 257 K/mcL (140-400); Red Blood Count 4.79 M/mcL (3.82-4.97); Red Cell Distribution Width 12.7 % (11.5-14.5); Segmented Neutrophils % 67.8 %
[2018-04-20 19:11] LABS: Alanine Aminotransferase 17 Units/L (7-52); Albumin 4.5 g/dL (3.5-5.7); Albumin/Globulin Ratio 1.8 (1.1-2.2); Alkaline Phosphatase 52 Units/L (34-104); Aspartate Amino Transferase 19 Units/L (13-39); BUN/Creatinine Ratio 19 (6-26); Bilirubin,Total 0.8 mg/dL (0.3-1.0); Blood Urea Nitrogen 12 mg/dL (8-23); Calcium 9.7 mg/dL (8.6-10.3); Carbon Dioxide 26 mEq/L (23-29); Chloride 107 mEq/L (98-107); Globulin 2.5 g/dL (2.4-3.5); Glucose 100 mg/dL (70-105); Lipase 120 Units/L (11-82); Osmolality,Calculated 294 (280-300); Potassium 4.1 mEq/L (3.5-5.1); Sodium 142 mEq/L (136-145); eGFR For Non-African Americans > 60 (> 60)
--- NOTE | 2018-04-20 19:24 | Emergency Department Note ---
Disposition Clinical Impression: Cholecystitis Disposition: Admitted As Inpatient Condition: Good Time of Disposition: 22:19 Abdominal Pain HPI - General Chief Complaint: ED Abdominal Pain Stated Complaint: abd pain Time Seen by Provider: 04/20/18 18:13 Source: patient Mode of arrival: ambulatory Limitations: no limitations Nursing Notes Reviewed: Yes Vital Signs Reviewed: Yes - History of Present Illness HPI Narrative: 73-year-old female with history of pancreatitis secondary to likely cholelithiasis according to previous surgeon, Dr. Salter, arrives to the emergency department with complaint of epigastric pain and right upper quadrant abdominal pain that started at roughly 08 100 this morning. The patient has associated nausea without vomiting. No fevers, chills, difficulty breathing, chest pain, melena, hematochezia. Patient is uncomfortable on evaluation is a positive Ambriz sign. She states that this is similar to previous episode with this burning sensation in the epigastric region as well as in her right upper quadrant. The patient was noted to have thickened gallbladder wall at that time as well as elevated pancreatic enzymes secondary to pancreatitis. Patient had a HIDA scan that demonstrated no gallstones but was instructed to come to the emergency department if she had another episode. This occurred roughly 2 months ago. Patient denies any other complaints at this time. Pain Scale: 0 - Related Data Home Medications Medication Instructions Recorded Confirmed RX: Losartan [Cozaar] 25 mg PO DAILY 01/25/18 04/20/18 Previous Rx's Medication Instructions Recorded RX: Pantoprazole Sodium 40 mg PO DAILY #30 tablet. 04/21/18 Allergies Allergy/AdvReac Type Severity Reaction Status Date / Time No Known Allergies Allergy Verified 01/25/18 00:53 All systems ED: reviewed and negative except as stated. Constitutional: Denies: fever, chills, weakness ENT ED: Denies: congestion, dysphagia Cardiovascular: Denies: chest pain Respiratory: Denies: dyspnea Gastrointestinal: Reports: abdominal pain, nausea. Denies: vomiting, diarrhea, constipation Genitourinary: Denies: urgency, dysuria Musculoskeletal: Denies: back pain, neck pain Integumentary: Denies: rash Neurological: Denies: headache Abdominal Pain PMH - Past Medical History Medical history: Reports: hypertension Female Surgical History: Reports: thyroidectomy Psychiatric history: Reports: no psych history - Social History Smoking status: Former smoker Alcohol use: Reports: none Drug use: Reports: none Physical Exam - General Limitations: no limitations General appearance: alert, in no apparent distress - Head Head exam: atraumatic, normocephalic, normal inspection - Eye Eye exam: Present: normal appearance, PERRL, EOMI - ENT ENT exam: normal exam, normal oropharynx, mucous membranes moist - Neck Neck exam: Present: normal inspection, full ROM, trachea midline - Chest Chest inspection: Present: normal inspection, symmetric chest wall rise - Respiratory Respiratory exam: Present: normal lung sounds bilaterally - Cardiovascular Cardiovascular exam: Present: regular rate, normal rhythm, normal heart sounds - Abdominal Exam Abdominal exam: Present: soft, tenderness, Ambriz's sign. Absent: distention, guarding, rebound, rigidity, psoas sign, obturator sign, Rovsing's sign, tendern ess at [place]'s [place], hernia, scar Abdominal tenderness: Present: RUQ, moderate - Extremities Exam Extremities exam: Present: normal inspection, full ROM. Absent: tenderness, pedal edema - Neurological Exam Neurological exam: Present: alert, oriented X3 Course Vital Signs Temperature 97.6 F 04/20/18 17:40 Pulse Rate 79 04/20/18 17:40 Respiratory Rate 18 04/20/18 17:40 Blood Pressure 214/127 04/20/18 17:40 O2 Sat by Pulse Oximetry 98 04/20/18 17:40 Temperature 97.6 F 04/20/18 17:57 Pulse Rate 78 04/20/18 17:57 Respiratory Rate 18 04/20/18 17:57 Blood Pressure 167/86 04/20/18 21:54 O2 Sat by Pulse Oximetry 99 04/20/18 17:57 Oxygen Delivery Oxygen Delivery Room Air Abdominal Pain - MDM Narrative Medical decision making narrative: Patient's workup in the emergency department demonstrate no leukocytosis, no elevation in transaminases and bilirubin. Patient does have a mildly elevated lipase. Right upper quadrant ultrasound revealed mild pericholecystic fluid with gallbladder wall thickening. Given the concern of the right upper quadrant pain, elevation in lipase combined with previous history of gallbladder wall thickening, I spoke with general surgery, Dr. White. After conversation, he recommended admission and likely cholecystectomy. He recommended admission to the hospitalist and he will consult. Given the concern for acute cholecystitis, we will start the patient on Zosyn. I spoke with the patient and she agrees to plan of care. No further questions or concerns noted at this time. Accepted by Dr. Mccauley. - Medical Records Medical records reviewed: Yes I reviewed the patient's medical records. - Lab Data Lab results reviewed: Yes I reviewed the patient's lab results. Result diagrams: 04/21/18 07:47 04/21/18 07:47 Lab Results 04/20/18 04/20/18 Range/Units 18:10 18:10 WBC 7.3 (4.3-11.1) K/mcL RBC 4.79 (3.82-4.97) M/mcL Hgb 13.9 (11.5-15.4) g/dL Hct 40.9 (35.3-44.9) % MCV 85.4 (83.0-100.0) fL MCH 29.0 (28.0-33.3) pg MCHC 34.0 (31.6-35.5) g/dL RDW 12.7 (11.5-14.5) % Plt Count 257 (140-400) K/mcL MPV 10.8 (9.4-12.4) fL Immature Gran % 0.4 (0-4) % Seg Neutrophils % 67.8 % Lymphocytes % 23.0 % Monocytes % 6.0 % Eosinophils % 2.1 % Basophils % 0.7 % Neutrophils # 5.0 (1.6-8.9) K/mcL Lymphocytes # 1.7 (0.6-4.6) K/mcL Monocytes # 0.4 (0.0-1.3) K/mcL Eosinophils # 0.2 (0.0-0.6) K/mcL Basophils # 0.1 (0.0-0.2) K/mcL Sodium 142 (136-145) mEq/L Potassium 4.1 (3.5-5.1) mEq/L Chloride 107 (98-107) mEq/L Carbon Dioxide 26 (23-29) mEq/L BUN 12 (8-23) mg/dL Creatinine 0.62 (0.60-1.20) mg/dL Est GFR ( Amer) > 60 (> 60) Est GFR (Non-Af Amer) > 60 (> 60) BUN/Creatinine Ratio 19 (6-26) Glucose 100 (70-105) mg/dL Calculated Osmolality 294 (280-300) Calcium 9.7 (8.6-10.3) mg/dL Total Bilirubin 0.8 (0.3-1.0) mg/dL AST 19 (13-39) Units/L ALT 17 (7-52) Units/L Alkaline Phosphatase 52 (34-104) Units/L Serum Total Protein 7.0 (6.4-8.9) g/dL Albumin 4.5 (3.5-5.7) g/dL Globulin 2.5 (2.4-3.5) g/dL Albumin/Globulin Ratio 1.8 (1.1-2.2) Lipase 120 H (11-82) Units/L - Radiology Data Radiology results reviewed: Yes I reviewed the patient's radiology results. Gallbladder Ultrasound 04/20/18 19:21 IMPRESSION: Moderate diffuse gallbladder wall thickening with trace pericholecystic fluid. Comet-tail artifact suggests adenomyomatosis. No definite cholelithiasis. Patient was slightly tender with compression of the gallbladder and cholecystitis must be considered. Follow-up nuclear medicine hepatobiliary imaging study may be helpful if clinically indicated. D/ / Renny Chase MD / Renny Chase MD Interpreting Provider: Renny Chase MD Attestation Statement - Attestation Attestation: Resident Attestation: I examined this patient and my medical decision making was reviewed with the Resident Physician. I agree with the documented findings, disposition and treatment plan as described except to the extent set forth below. We independently had [id number] contact with the patient. Patient with previous history of pancreatitis and cholelithiasis that was admitted and evaluated by Dr. Salter on previous admission. No immediate need to take out gallbladder at that time. Patient has been having episodes of right upper quadrant and epigastric pain. Today the pain is more severe radiating to the right shoulder. Workup for possible acute cholecystitis. Pericholecystic fluid seen. The resident did discuss the case with the surgeon elevator constructor hydraulic. Patient admitted for further evaluation.
[2018-04-20] MEDS ORDERED: Hyoscyamine SL 0.125 MG TAB.SUBL SL STA (20:08)
[2018-04-20] MEDS ORDERED: Piperacillin/Tazobactam 3.375 GM in 0.9 % Sodium Chloride Mini Bag 100 ML IVPB ONE (21:58)
[2018-04-21] MEDS ORDERED: Naloxone 0.4 MG/ML INJ IVP PRN (05:59)
[2018-04-21] MEDS ORDERED: 0.9 % Sodium Chloride 1,000 ML IVC SCH (06:00)
--- NOTE | 2018-04-21 06:13 | Internal Med History&Physical ---
Date of Encounter: 04/21/18 Time of Encounter: 05:15 Internal Medicine - H&P: HPI Chief complaint: Abdominal Pain Admitted From: Home Plans for Post Hospital Care: Home History of present illness: Ms. Abdul is a 73 year old female with past medical history significant for hypertension and acid reflux who presents for complaints of 4/10 burning right upper quadrant abdominal pain starting prior to arrival and accompanied by nausea. Patient states pain is intermittent and denies any alleviating or exacerbating factors. Denies any home treatment. Denies chest pain, shortness of breath, headache, bowel or bladder changes. Last bowel movement yesterday. Patient was seen around 2 months ago for similar abdominal pain and was found to have thickened gallbladder with elevated pancreatic enzymes secondary to concepcion creatitis. Patient was seen by surgery at that time but they then did not feel gallbladder needed to be removed. Was told to return for any similar symptoms. Due to presentation similar to previous with gallbladder wall thickening, elevated lipase, and positive Ambriz sign, ER consulted surgery who suspected cholecystitis likely needing cholecystectomy. Upon my assessment patient reports the pain is completely resolved currently. She also reports already being seen by surgery prior to my assessment who reported they will likely not do surgery and have her follow up as outpatient. Will await official surgery recommendations for final disposition. Past Med Surg Social Fam HX - Past Medical History Medical history: hypertension Psychiatric history: no psych history - Past Surgical History Surgical History: no surgical history - Social History Smoking Status: Former smoker Smokeless Tobacco Status: No Alcohol use: none Drug use: none - Family History Father Adopted: No Family Member Ethnicity: Non- Living Status: Hx Family Respiratory Disorders: Yes (ASHTHMA, COPD) Hx Family Cancer: Yes (LUNG) Hx Family GI Disorders: No Hx Family Endocrine Disorder: No Hx Family Neuromuscular Disorders: No Hx Family Neurologic Disorders: No Hx Family HEENT Disorders: No Hx Family Autoimmune Disorders: No Internal Medicine - H&P: Meds Losartan [Cozaar] 25 mg PO DAILY 01/25/18 [History] Allergy/AdvReac Type Severity Reaction Status Date / Time No Known Allergies Allergy Verified 01/25/18 00:53 All Systems PM: A 10-system review of systems was performed and is negative for pertinent findings except as documented above in the HPI. - Constitutional Vitals: Temp Pulse Resp BP Pulse Ox 97.7 F 55 16 155/72 98 04/21/18 04:23 04/21/18 04:23 04/21/18 04:23 04/21/18 04:23 04/21/18 04:23 Exam: General: Alert and oriented. Skin:Normal color, no rash, no lesions. HEENT:Pupils equal, round and reactive. Cardiovascular:Normal S1 & S2, no rubs, murmurs or gallops. No JVD. Pulse regular. Lungs:Normal breath sounds, no wheezes or crackles. Abdomen:Soft, non-tender, no rigidity. Abdominal pain currently resolved. Extremities:No deformity, no edema or tenderness, no joint swelling or clubbing. Neurological:Normal cognition and motor skills. Pulses:Carotid and radial pulses normal +2. Rest of the physical exam is non contributory. Internal Med - H&P Results - Labs CBC & Chem 7: 04/20/18 18:10 04/20/18 18:10 Labs: Short CBC 04/20/18 Range/Units 18:10 WBC 7.3 (4.3-11.1) K/mcL Hgb 13.9 (11.5-15.4) g/dL Hct 40.9 (35.3-44.9) % Plt Count 257 (140-400) K/mcL Neutrophils # 5.0 (1.6-8.9) K/mcL BMP 04/20/18 18:10 Sodium 142 Potassium 4.1 Chloride 107 Carbon Dioxide 26 BUN 12 Creatinine 0.62 Glucose 100 Calcium 9.7 Liver Function 04/20/18 Range/Units 18:10 Total Bilirubin 0.8 (0.3-1.0) mg/dL AST 19 (13-39) Units/L ALT 17 (7-52) Units/L Alkaline Phosphatase 52 (34-104) Units/L Albumin 4.5 (3.5-5.7) g/dL - Impressions ITS Impressions Gallbladder Ultrasound 04/20/18 19:21 IMPRESSION: Moderate diffuse gallbladder wall thickening with trace pericholecystic fluid. Comet-tail artifact suggests adenomyomatosis. No definite cholelithiasis. Patient was slightly tender with compression of the gallbladder and cholecystitis must be considered. Follow-up nuclear medicine hepatobiliary imaging study may be helpful if clinically indicated. D/ / Renny Chase MD / Renny Chase MD Interpreting Provider: Renny Chase MD - Assessment and plan (1) Abdominal pain Current Visit: Yes Status: Acute Assessment and plan: Currently resolved. Surgery consulted by ER, will await official recommendations for final disposition. Keep NPO. IVF at 100 ml/hr. Zosyn started in ER, will continue same. Repeat labs in a.m. Qualifiers: Abdominal location: right upper quadrant Qualified Code(s): R10.11 - Right upper quadrant pain (2) Acid reflux Current Visit: Yes Status: Chronic Assessment and plan: Continue home medications once verified. Qualifiers: Esophagitis presence: esophagitis presence not specified Qualified Code(s): K21.9 - Gastro-esophageal reflux disease without esophagitis (3) Hypertension Current Visit: No Status: Chronic Assessment and plan: Continue home medications once verified. Qualifiers: Hypertension type: essential hypertension Qualified Code(s): I10 - Essential (primary) hypertension - Time Spent With Patient Total time spent is greater than 50% in coordination of care (as documented) at patient's floor/unit and/or counseling patient:
[2018-04-21] MEDS ORDERED: Piperacillin/Tazobactam 3.375 GM in 0.9 % Sodium Chloride Mini Bag 100 ML IVPB SCH (08:00)
[2018-04-21 08:01] LABS: Basophils # 0.1 K/mcL (0.0-0.2); Basophils % 0.8 %; Eosinophils # 0.1 K/mcL (0.0-0.6); Eosinophils % 2.3 %; Hematocrit 39.6 % (35.3-44.9); Hemoglobin 13.3 g/dL (11.5-15.4); Immature Granulocytes % 0.3 % (0-4); Lymphocytes # 1.5 K/mcL (0.6-4.6); Lymphocytes % 24.4 %; Mean Corpuscular HGB Conc 33.6 g/dL (31.6-35.5); Mean Corpuscular Hemoglobin 28.5 pg (28.0-33.3); Mean Platelet Volume 10.7 fL (9.4-12.4); Monocytes # 0.4 K/mcL (0.0-1.3); Monocytes % 6.1 %; Platelet Count 251 K/mcL (140-400); Red Blood Count 4.66 M/mcL (3.82-4.97); Red Cell Distribution Width 12.9 % (11.5-14.5); Segmented Neutrophils % 66.1 %
[2018-04-21 08:36] LABS: Alanine Aminotransferase 17 Units/L (7-52); Albumin 4.2 g/dL (3.5-5.7); Albumin/Globulin Ratio 1.8 (1.1-2.2); Alkaline Phosphatase 44 Units/L (34-104); Aspartate Amino Transferase 19 Units/L (13-39); BUN/Creatinine Ratio 23 (6-26); Bilirubin,Total 1.2 mg/dL (0.3-1.0); Blood Urea Nitrogen 15 mg/dL (8-23); Calcium 9.6 mg/dL (8.6-10.3); Carbon Dioxide 23 mEq/L (23-29); Chloride 109 mEq/L (98-107); Globulin 2.4 g/dL (2.4-3.5); Glucose 109 mg/dL (70-105); Osmolality,Calculated 295 (280-300); Potassium 3.9 mEq/L (3.5-5.1); Sodium 142 mEq/L (136-145); Total Protein 6.6 g/dL (6.4-8.9); eGFR For Non-African Americans > 60 (> 60)
--- NOTE | 2018-04-21 10:33 | General Surgery Consult Note ---
<Claudia Clemons Dennys - Last Filed: 04/21/18 10:19> Date of Encounter: 04/21/18 Time of Encounter: 08:51 Assessment and Plan (1) Abdominal pain Current Visit: Yes Status: Acute Patient's symptoms and presentation are consistent with cholecystits, however recent imaging suggests otherwise Recent HIDA scan was negative Gallbladder US 04/20 with gallbladder wall thickening, no cholelithiasis, and possible adenomyomatosis Do not recommend cholecystectomy at this time, as we are not convinced that this is the source of her abdominal pain Considering possible esophageal source, may need outpatient EGD with further workup After discussion with patient and thorough chart review, recommend outpatient follow up in the office on Sunday with Dr. White Qualifiers: Abdominal location: epigastric Qualified Code(s): R10.13 - Epigastric pain History of Present Illness Consult date: 04/21/18 Reason for consult: abdominal pain Requesting physician: Brian Reddy History of present illness: Jose R Abdul is a 73 year old female with a history of GERD with recent admi ssion in 01/2018 for pancreatitis and possible cholecystitis. CT of abd/pelvis and gallbladder US on previous admission showed gallbladder wall thickening without evidence of gallstones and HIDA scan was negative. Patient's symptoms returned, which is why she presented at the ED last night with burning RUQ pain and nausea. On presentation, LFTs wnl, Lipase 120. Gallbladder US in the ED was similar to previous with gallbladder wall thickening with pericholecystic fluid without cholelithiasis. Total Bilirubin is now 1.2 and Lipase is 58. Patient states that her pain has improved with IVFs and abx. She admits to mild LUQ/epigastric tenderness and burning in her chest. Past Med Surg Social Fam HX - Past Medical History Medical history: hypertension Psychiatric history: no psych history - Past Surgical History Surgical History: no surgical history - Social History Smoking Status: Former smoker Smokeless Tobacco Status: No Alcohol use: none Drug use: none - Family History Father Adopted: No Family Member Ethnicity: Non- Living Status: Hx Family Respiratory Disorders: Yes (ASHTHMA, COPD) Hx Family Cancer: Yes (LUNG) Hx Family GI Disorders: No Hx Family Endocrine Disorder: No Hx Family Neuromuscular Disorders: No Hx Family Neurologic Disorders: No Hx Family HEENT Disorders: No Hx Family Autoimmune Disorders: No Medications and Allergies Losartan [Cozaar] 25 mg PO DAILY 01/25/18 [History] Allergy/AdvReac Type Severity Reaction Status Date / Time No Known Allergies Allergy Verified 01/25/18 00:53 Review of Systems All systems PM: The remainder of the systems were reviewed and are negative - Constitutional no chills, no fever(s) - Cardiovascular no lightheadedness - Gastrointestinal abdominal pain, nausea, no diarrhea, no vomiting General Surgery Exam Initial Vital Signs Temp Pulse Resp BP Pulse Ox 97.6 F 79 18 214/127 98 04/20/18 17:40 04/20/18 17:40 04/20/18 17:40 04/20/18 17:40 04/20/18 17:40 - General physical appearance well developed, well nourished, no distress, moderate pain - Respiratory normal expansion, normal respiratory effort - Cardiovascular Cardiovascular exam: Present: RRR, no murmurs/rubs/gallops - Abdomen Abdomen general surgery: Present: bowel sounds present, soft, tender Abdominal Tenderness: Present: epigastic (to deep palpation) Exam Initial Vital Signs Temp Pulse Resp BP Pulse Ox 97.6 F 79 18 214/127 98 04/20/18 17:40 04/20/18 17:40 04/20/18 17:40 04/20/18 17:40 04/20/18 17:40 Results - Labs 04/21/18 07:47 04/21/18 07:47 Abnormal lab results Chloride 109 mEq/L (98-107) H 04/21/18 07:47 Glucose 109 mg/dL (70-105) H 04/21/18 07:47 Total Bilirubin 1.2 mg/dL (0.3-1.0) H 04/21/18 07:47 Diabetes panel 04/20/18 04/21/18 Range/Units 18:10 07:47 Sodium 142 142 (136-145) mEq/L Potassium 4.1 3.9 (3.5-5.1) mEq/L Chloride 107 109 H (98-107) mEq/L Carbon Dioxide 26 23 (23-29) mEq/L BUN 12 15 (8-23) mg/dL Creatinine 0.62 0.66 (0.60-1.20) mg/dL Glucose 100 109 H (70-105) mg/dL Calcium 9.7 9.6 (8.6-10.3) mg/dL AST 19 19 (13-39) Units/L ALT 17 17 (7-52) Units/L Alkaline Phosphatase 52 44 (34-104) Units/L Albumin 4.5 4.2 (3.5-5.7) g/dL Calcium panel 04/20/18 04/21/18 Range/Units 18:10 07:47 Calcium 9.7 9.6 (8.6-10.3) mg/dL Albumin 4.5 4.2 (3.5-5.7) g/dL Pituitary panel 04/20/18 04/21/18 Range/Units 18:10 07:47 Sodium 142 142 (136-145) mEq/L Potassium 4.1 3.9 (3.5-5.1) mEq/L Chloride 107 109 H (98-107) mEq/L Carbon Dioxide 26 23 (23-29) mEq/L BUN 12 15 (8-23) mg/dL Creatinine 0.62 0.66 (0.60-1.20) mg/dL Glucose 100 109 H (70-105) mg/dL Calcium 9.7 9.6 (8.6-10.3) mg/dL Adrenal panel 04/20/18 04/21/18 Range/Units 18:10 07:47 Sodium 142 142 (136-145) mEq/L Potassium 4.1 3.9 (3.5-5.1) mEq/L Chloride 107 109 H (98-107) mEq/L Carbon Dioxide 26 23 (23-29) mEq/L BUN 12 15 (8-23) mg/dL Creatinine 0.62 0.66 (0.60-1.20) mg/dL Glucose 100 109 H (70-105) mg/dL Calcium 9.7 9.6 (8.6-10.3) mg/dL Total Bilirubin 0.8 1.2 H (0.3-1.0) mg/dL AST 19 19 (13-39) Units/L ALT 17 17 (7-52) Units/L Alkaline Phosphatase 52 44 (34-104) Units/L Albumin 4.5 4.2 (3.5-5.7) g/dL All other labs normal. Consult Discharge Plan - Plan Referrals: Christie Farias, [facility] [Primary Care Provider] - <Lewis White - Last Filed: 04/21/18 11:32> Date of Encounter: 04/21/18 Review of Systems All systems PM: The remainder of the systems were reviewed and are negative General Surgery Exam Initial Vital Signs Temp Pulse Resp BP Pulse Ox 97.6 F 79 18 214/127 98 04/20/18 17:40 04/20/18 17:40 04/20/18 17:40 04/20/18 17:40 04/20/18 17:40 Exam Initial Vital Signs Temp Pulse Resp BP Pulse Ox 97.6 F 79 18 214/127 98 04/20/18 17:40 04/20/18 17:40 04/20/18 17:40 04/20/18 17:40 04/20/18 17:40 Results - Labs 04/21/18 07:47 04/21/18 07:47 Abnormal lab results Chloride 109 mEq/L (98-107) H 04/21/18 07:47 Glucose 109 mg/dL (70-105) H 04/21/18 07:47 Total Bilirubin 1.2 mg/dL (0.3-1.0) H 04/21/18 07:47 Diabetes panel 04/20/18 04/21/18 Range/Units 18:10 07:47 Sodium 142 142 (136-145) mEq/L Potassium 4.1 3.9 (3.5-5.1) mEq/L Chloride 107 109 H (98-107) mEq/L Carbon Dioxide 26 23 (23-29) mEq/L BUN 12 15 (8-23) mg/dL Creatinine 0.62 0.66 (0.60-1.20) mg/dL Glucose 100 109 H (70-105) mg/dL Calcium 9.7 9.6 (8.6-10.3) mg/dL AST 19 19 (13-39) Units/L ALT 17 17 (7-52) Units/L Alkaline Phosphatase 52 44 (34-104) Units/L Albumin 4.5 4.2 (3.5-5.7) g/dL Calcium panel 04/20/18 04/21/18 Range/Units 18:10 07:47 Calcium 9.7 9.6 (8.6-10.3) mg/dL Albumin 4.5 4.2 (3.5-5.7) g/dL Pituitary panel 04/20/18 04/21/18 Range/Units 18:10 07:47 Sodium 142 142 (136-145) mEq/L Potassium 4.1 3.9 (3.5-5.1) mEq/L Chloride 107 109 H (98-107) mEq/L Carbon Dioxide 26 23 (23-29) mEq/L BUN 12 15 (8-23) mg/dL Creatinine 0.62 0.66 (0.60-1.20) mg/dL Glucose 100 109 H (70-105) mg/dL Calcium 9.7 9.6 (8.6-10.3) mg/dL Adrenal panel 04/20/18 04/21/18 Range/Units 18:10 07:47 Sodium 142 142 (136-145) mEq/L Potassium 4.1 3.9 (3.5-5.1) mEq/L Chloride 107 109 H (98-107) mEq/L Carbon Dioxide 26 23 (23-29) mEq/L BUN 12 15 (8-23) mg/dL Creatinine 0.62 0.66 (0.60-1.20) mg/dL Glucose 100 109 H (70-105) mg/dL Calcium 9.7 9.6 (8.6-10.3) mg/dL Total Bilirubin 0.8 1.2 H (0.3-1.0) mg/dL AST 19 19 (13-39) Units/L ALT 17 17 (7-52) Units/L Alkaline Phosphatase 52 44 (34-104) Units/L Albumin 4.5 4.2 (3.5-5.7) g/dL All other labs normal. - Attending Attestation patient seen and examined. i have reviewed all labs, imaging, and notes. i have discussed the case with the resident in detail. I agree with the above assessment and plan and wish to add the following... plan for follow up in my clinic to complete work up
[2018-04-21 10:39] VITALS: BP 149/75
--- NOTE | 2018-04-21 11:45 | Discharge Summary ---
Orders not resulted at time of discharge: Pending orders 04/20/18 18:13 EKG [ECG 12 lead ECG] [ECG] Stat Date of Encounter: 04/21/18 Time of Encounter: 12:04 - Discharge Diagnosis (1) Abdominal pain Priority: Primary Status: Acute Qualifiers: Abdominal location: epigastric Qualified Code(s): R10.13 - Epigastric pain (2) Acid reflux Priority: Primary Status: Chronic Qualifiers: Esophagitis presence: esophagitis presence not specified Qualified Code(s): K21.9 - Gastro-esophageal reflux disease without esophagitis (3) Hypertension Priority: Secondary Status: Chronic Qualifiers: Hypertension type: essential hypertension Qualified Code(s): I10 - Essential (primary) hypertension Hospital course: Ms. Abdul is a 73 year old female with PMH HTN and GERD presented to [facility] on 04/21/2018 complaints of abdominal pain. She was placed in observation status for further workup and treatment. Was hospitalized 01/2018 with similar symptoms and patient was advised return to ER if symptoms recurred. She was evalauted by General Surgery who noted patient's symptoms and presentation are consistent with cholecystits, however recent imaging suggests otherwise. 01/2018 HIDA scan was negative Gallbladder US 04/20 with gallbladder wall thickening, no cholelithiasis, and possible adenomyomatosis. General Surgery did not recommend cholecystectomy at this time, as they were not convinced that this is the source of her abdominal pain. ABD pain resolved at time of discharge. She is tolerating regular diet with no abdominal pain. General Surgery is considering possible esophageal source, may need outpatient EGD with further workup. Plan is for follow-up on Sunday04/24/[address] White. All symptoms resolved at time of discharge and patient requested discharge home with outpatient follow-up. Discharge discussed with: patient - Time Spent with Patient Total time spent providing and/or coordinating discharge services: - Discharge Medications Prescriptions: Pantoprazole Sodium 40 mg PO DAILY #30 tablet. Home Medications: Losartan [Cozaar] 25 mg PO DAILY 01/25/18 [History] Pantoprazole Sodium 40 mg PO DAILY #30 tablet. 04/21/18 [Rx] Allergies/Adverse Reactions: Allergy/AdvReac Type Severity Reaction Status Date / Time No Known Allergies Allergy Verified 01/25/18 00:53 Date of admission: 04/20/18 22:27 Primary care physician: Christie Farias CNP Consults: 04/20/18 21:59 Consult to Surgery [CONS] Stat Consulting Provider: [facility] Reason for Consult: Cholecystitis Call Completed: Yes Discharging clinician: Kathryn Payton Anticipated date of discharge: 04/21/18 - Constitutional Vitals: Temp Pulse Resp BP Pulse Ox 97.4 F L 51 15 149/75 96 04/21/18 10:37 04/21/18 10:37 04/21/18 10:37 04/21/18 10:37 04/21/18 10:37 Exam: . - Head Head exam: Present: atraumatic, normocephalic - Eye Eye exam: Present: PERRL, conjuntiva pink, sclera anicteric Pupils: Present: PERRL - Neck Neck exam general surgery: Present: supple, trachea midline. Absent: lymphadenopathy - Respiratory Respiratory exam: Present: CTAB. Absent: accessory muscle use, rales, rhonchi, wheezes - Cardiovascular Cardiovascular exam: Present: RRR, +S1, +S2. Absent: diastolic murmur, gallop, rubs, systolic murmur - GI/Abdominal GI/Abdominal exam: Present: normal bowel sounds, soft, no peritoneal signs. Absent: distended, tenderness - Extremities Exam Extremities exam: Present: warm, radial pulses palpable and symmetrical. Absent: calf tenderness, cyanotic, pedal edema - Neurological Exam Neurological exam: Present: CN II-XII intact, oriented X3, no focal deficits. Absent: pronater drift, facial droop, speech deficit - Skin Skin exam: Present: dry, intact - Patient Status Disposition: Home, Self-Care Condition: Good Functional capacity at discharge: independent ambulation Overall status at discharge: patient is back to baseline - Discharge Instructions Follow Up With: Christie Farias CNP [Primary Care Provider] - Lewis White MD [Non-Partnered Physician] - (Please keep appt on 04/24/2018 for EGD) - Diet and Activity Activity: increase activity as tolerated Diet: advance to your usual diet
--- NOTE | 2018-04-24 09:31 | Electrocardiograph Report ---
[place] [id number] Test Date: 2018-04-20 Pat Name: Tanja Abdul Department: EXAM9 Room: 3A55 Gender: F Quantitative Consultant: : 1945 Requested By: Trevon Gramajo Order Number: [id number] Reading MD: Dudley Lynn Measurements Intervals [place] Rate: 69 P: 46 DE: 140 QRS: 10 QRSD: 106 T: 10 QT: 380 QTc: 408 Interpretive Statements Sinus rhythm Probable left atrial enlargement Left ventricular hypertrophy Electronically Signed On 04-24-2018 9:29:44 EST by Dudley Lynn
== END 2018-04-21 12:50 | disposition home or self-care (01) ==
LOC: EMEROOARM 17:37 → 3ANU 17:37
PROVIDERS: ADMIT Family Medicine; ATTEND Family Medicine